=== PATIENT | male | born 1985 | race Caucasian/White ===

== ENCOUNTER 2020-10-15 20:57 | Emergency (ER) | payer BC, SELFPAY ==
--- NOTE | ~2020-10-15 | XR_ITS ---
EXAMINATION: XR shoulder RT min 2V INDICATION: Right shoulder pain TECHNIQUE: Two views of the right shoulder are submitted. COMPARISON: None FINDINGS: There is anterior/inferior dislocation of the right humeral head with respect to the glenoi d. No fracture is identified. The acromioclavicular joint space is normal. Soft tissues are unremarka ble. IMPRESSION: 1. Anterior/inferior glenohumeral dislocation. Reviewed, dictated and finalized at location A.
--- NOTE | ~2020-10-15 | XR_ITS ---
EXAMINATION: XR shoulder RT min 2V INDICATION: Post reduction of the glenohumeral joint TECHNIQUE: Two views of the right shoulder are submitted. COMPARISON: None FINDINGS: The previously described glenohumeral dislocation has been reduced. No fracture is identifi ed. The acromioclavicular joint is normal. Soft tissues are unremarkable. IMPRESSION: 1. Reduced glenohumeral joint dislocation. Reviewed, dictated and finalized at location A.
[2020-10-15 21:01] VITALS: BP 149/99; PULSE 72; RESP 18; TEMP 36.8; O2SAT 97
--- NOTE | 2020-10-15 21:10 | ED.UPPEXIN ---
HPI - Extremity Injury (Upper) General Chief Complaint: Extremity Injury, Upper Stated Complaint: popped right shoulder out Time Seen by Provider: 10/15/20 21:09 Source: patient Mode of arrival: ambulatory Limitations: no limitations History of Present Illness HPI narrative: Patient is a 35-year-old male complaining of right shoulder pain, I think I dislocated , started prior to arrival after going for a slide while playing baseball. Patient states his pain is an 8 out of 10, aching, nonradiating. Denies any other pain or injury. Denies any head, neck, chest, abdomen, back or any other extremity pain/injury. Related Data Allergies Allergy/AdvReac Type Severity Reaction Status Date / Time No Known Allergies Allergy Verified 10/15/20 21:05 Review of Systems Review of Systems: All systems reviewed & are unremarkable except as noted in HPI and below PMFSH Social History Social History Gender identity (if verbalized by the patient): Male Comments Past medical history: None Family history: Noncontributory Social history: Non-smoker no EtOH or drug use Exam Const: General: cooperative, healthy appearing, comfortable, no acute distress, well developed, alert and awake; No confusion Orientation/consciousness: oriented to person, oriented to place, oriented to time, patient oriented x3 and No confusion Limitations: no limitations HENMT: Head: normal to inspection, normocephalic and atraumatic Ears: hearing grossly normal bilaterally, TM normal on the right and TM normal on the left General nose exam: Normal external nose present, Normal nares present and No nasal discharge present Face and sinus: normal facial exam Mouth: Yes Normal oral and palatal mucosa present, Yes lip normal, Yes tongue normal and Yes oropharynx normal Throat: posterior oropharynx normal, tonsils normal and uvula midline Eyes: General: appearance normal, both eyes and all related structures Pupils: Equal, round and reactive pupils present EOM: EOMs intact bilaterally Neck: Neck: normal visual inspection, full ROM, no lymphadenopathy and no meningeal signs Chest: Chest palpation & inspection: normal inspection of the chest Resp: Effort & Inspection: normal respiratory effort, able to speak in complete sentences, no respiratory distress and not tachypneic Auscultation: clear to auscultation bilaterally, no crackles, no rales, no rhonchi and no wheezes Cardio: Rate: regular rate Rhythm: regular rhythm GI: Inspection: normal to inspection GI Palp: No abdominal tenderness, Yes Soft to palpation, No Tenderness to palpation present (GI), No Guarding due to palpation present (GI), No Rigid due to palpation and No Rebound tenderness present Auscultation: normal bowel sounds : General: Yes no CVA tenderness Back/Spine/Pelvis: Back: no CVA tenderness Skin: General skin exam: normal color, no rashes or lesions noted, elasticity normal and turgor normal Neuro: General: oriented to person, oriented to place, oriented to time, patient oriented x3, tone normal, moves all extremities, Normal light touch and pain sensation, no meningeal signs, no focal motor deficits, CN's II-XI intact bilaterally and No confusion Cranial nerves: Yes Equal, round and reactive pupils present Speech: No Abnormal speech present Sensory Exam: No Sensory deficit (Neuro) Extrem: General: capillary refill normal Other: Right shoulder deformity, decreased range of motion due to pain, neurovascular is intact Psych: Appearance: grossly normal and well kempt Mental Status: mental status grossly normal Speech and movement: Normal speech and movement present Affect: normal affect Attitude: cooperative Thought process: Normal thought process present Thought content: Yes Normal thought content present Insight: Good insight present (Psych) Judgement: Good judgement present (Psych) Course Vital Signs Vital signs: Vital Signs
[2020-10-15] MEDS: diazePAM INJ (*CRX) 10 MG/2 ML SYRINGE 5 MG IM (21:39)
[2020-10-15] MEDS: KETOROLAC 30 MG/ML VIAL (*BKC) IM (21:39)
[2020-10-15] MEDS: HYDROcodone/acetaminophen (*CRX) 5-325 MG TABLET 1 TAB PO (21:39)
[2020-10-15 22:27] VITALS: BP 146/96; PULSE 84; RESP 16; O2SAT 99
--- NOTE | 2020-10-15 22:52 | PC.NURSE ---
PT refusing TDAP at this time. States he received one 3 years ago when his son was born.
--- NOTE | 2020-10-15 22:52 | PC.NURSE ---
Pt shoulder reduced at bedside. Tolerated well. Pt notes pain relief
== END 2020-10-15 23:03 | disposition home or self-care (01) ==
PROVIDERS: Emergency Provider Emergency Medicine
DX: S43.014A Anterior dislocation of right humerus, initial encounter (principal); Y93.64 Activity, baseball; X58.XXXA Exposure to other specified factors, initial encounter
CPT/HCPCS: 23650; 73030; 96372; 99285; A4565; A9270; J1885; J3360